=== PATIENT | male | born 1950 | race Caucasian/White ===

== ENCOUNTER → 2017-07-09 | Outpatient (CLI) | payer OTHER | LOC: FIMAGING 12:56 | PROVIDERS: ATTEND Orthopaedic Surgery | DX: M17.12 Unilateral primary osteoarthritis, left knee (principal) ==

== ENCOUNTER → 2017-07-20 | Outpatient (CLI) | payer OTHER | LOC: FIMAGING 13:16 | PROVIDERS: ATTEND Family Medicine | DX: Z13.83 Encounter for screening for respiratory disorder NEC (principal); R91.1 Solitary pulmonary nodule; E78.00 Pure hypercholesterolemia, unspecified; I25.10 Atherosclerotic heart disease of native coronary artery without angina pectoris; Z87.891 Personal history of nicotine dependence ==

== ENCOUNTER 2017-10-14 08:06 | Observation (INO) | payer OTHER, MEDICARE ==
[~2017-10-14 08:06] MED LIST: ACETAMINOPHEN 325 MG TAB PO ONE; DEXAMETHASONE 4 MG/ML VIAL IVP ONE; FAMOTIDINE 20 MG TAB PO ONE; ROPIVACAINE 0.2% 80 MG, EPINEPHrine 0.2 MG, KETOROLAC TROMETHAMINE 30 MG in SYRINGE 0 ML IU ONE; TRANEXAMIC ACID 3,000 MG in NS 50 ML IRR ONE; TRANEXAMIC ACID 3,000 MG/50 ML BAG IRR ONE; VANCOMYCIN 1 GM VIAL ONE; ceFAZolin 2 GM/SWFI 2 GM/20 ML SYR IVP ONE
[2017-10-14] MEDS ORDERED: FAMOTIDINE 20 MG TAB PO ONE (08:30)
[2017-10-14] MEDS ORDERED: ceFAZolin 2 GM/SWFI 2 GM/20 ML SYR IVP ONE (08:30)
[2017-10-14] MEDS ORDERED: DEXAMETHASONE 4 MG/ML VIAL IVP ONE (08:30)
[2017-10-14] MEDS ORDERED: ACETAMINOPHEN 325 MG TAB PO ONE (08:30)
[2017-10-14] MEDS ORDERED: LIDOCAINE 1% 2 ML INJ ID PRN (08:31)
[2017-10-14] MEDS ORDERED: LR 1,000 ML IV ONE (08:31)
[2017-10-14] MEDS ORDERED: MIDAZOLAM 2 MG/2 ML VIAL ONE (09:54)
[2017-10-14] MEDS ORDERED: PROPOFOL/EMULSION 500 MG/50 ML BOTTLE IV ONE (09:54)
[2017-10-14] MEDS ORDERED: LIDOCAINE 2% 5 ML SDV ONE (10:24)
[2017-10-14] MEDS ORDERED: ROPIVACAINE HCL 150 MG/30 ML INJ ONE (10:24)
[2017-10-14] MEDS ORDERED: LR 500 ML IV PRN (10:31)
[2017-10-14] MEDS ORDERED: fentaNYL 100 MCG/2 ML INJ IVP PRN (10:31)
[2017-10-14] MEDS ORDERED: OXYCODONE/APAP 5/325 TAB PO PRN (10:31)
[2017-10-14] MEDS ORDERED: ACETAMINOPHEN 500 MG TAB PO PRN (10:31)
[2017-10-14] MEDS ORDERED: METOCLOPRAMIDE 10 MG/2 ML VIAL IVP PRN ×2 (10:31→11:21)
[2017-10-14] MEDS ORDERED: DEXAMETHASONE 4 MG/ML VIAL IVP PRN (10:31)
[2017-10-14] MEDS ORDERED: ALBUTEROL 3 ML DEYVIAL IH PRN (10:31)
[2017-10-14] MEDS ORDERED: NALOXONE HCL 0.4 MG/ML INJ IVP PRN (10:31)
[2017-10-14] MEDS ORDERED: MEPERIDINE 25 MG/ML SYR IVP PRN (10:31)
[2017-10-14] MEDS ORDERED: HYDROCODONE/APAP 5/325 TAB PO PRN (10:31)
[2017-10-14] MEDS ORDERED: ONDANSETRON 4 MG/2 ML VIAL IVP PRN ×2 (10:31→11:21)
--- NOTE | 2017-10-14 10:31 | PDANEPAE ---
ANE Past Medical History - Cardiovascular History Hx Hypertension: Yes Hx Arrhythmias: No Hx Chest Pain: No Hx Coronary Artery / Peripheral Vascular Disease: No Hx CHF / Valvular Disease: No Hx Palpitations: No - Pulmonary History Hx COPD: No Hx Asthma/Reactive Airway Disease: No Hx Recent Upper Respiratory Infection: No Hx Oxygen in Use at Home: No Hx Sleep Apnea: Yes Sleep Apnea Screening Result - Last Documented: Positive Pulmonary History Comment: cpap with humidifier - Neurologic History Hx Cerebrovascular Accident: No Hx Seizures: No Hx Dementia: No - Endocrine History Hx Diabetes: No - Renal History Hx Renal Disorders: No - Liver History Hx Hepatic Disorders: No - Neurological & Psychiatric Hx Hx Neurological and Psychiatric Disorders: No - Cancer History Hx Cancer: No - Congenital Disorder History Hx Congenital Disorders: No - GI History Hx Gastrointestinal Disorders: Yes Gastrointestinal History Comment: reflux - Other Health History Other Health History: none - Chronic Pain History Chronic Pain: No - Surgical History Prior Surgeries: wrist,meniscus tear repaired 2017 ANE Review of Systems Review of Systems: - Exercise capacity METS (RN): 4 METS ANE Patient History - Allergies Allergies/Adverse Reactions: Penicillins Allergy (Unknown, Verified 10/14/17 08:40) rxn when pt was a baby - Home Medications Home Medications: Allopurinol [Allopurinol 300 MG (RX)] 300 mg PO HS 09/28/17 [Last Taken 10/07/17 ] Aspirin [Aspirin 81mg (*)] 81 mg PO DAILY 09/28/17 [Last Taken 10/07/17] Atorvastatin Calcium [Lipitor 40 mg (*)] 40 mg PO HS 09/28/17 [Last Taken 20:00] Fluticasone Nasal [Flonase Nasal [place] (RX)] 1 sprays NASAL DAILY 09/28/17 [ Last Taken 10/13/17] Glucosamine/Chondroitin [Glucosamine/Chondroitin (*)] 1 each PO BID 09/28/17 [ Last Taken 09/30/17] Herbals/Supplements -Info Only 1 ea PO DAILY 09/28/17 [Last Taken 10/07/17] Levothyroxine [Synthroid 88 mcg (*)] 88 mcg PO DAILY06 09/28/17 [Last Taken 08:00] Lisinopril [Zestril 20 mg (*)] 20 mg PO DAILY 09/28/17 [Last Taken 10/13/17 08: 00] Naproxen Sodium [Aleve 220 MG (*)] 440 mg PO BID 09/28/17 [Last Taken 10/07/17] Clifton-3 Fatty Acids [Fish Oil 1000 mg (*)] 1,000 mg PO DAILY 09/28/17 [Last Taken 09/30/17] Ranitidine HCl [Zantac] 300 mg PO DAILY 09/28/17 [Last Taken 10/13/17 08:00] - NPO status NPO Since - Liquids (Date): 10/13/17 NPO Since - Liquids (Time): 20:30 NPO Since - Solids (Date): 10/13/17 NPO Since - Solids (Time): 19:00 - Smoking Hx Smoking Status: Former smoker - Family Anes Hx Family Hx Anesthesia Complications: none ANE Labs/Vital Signs - Vital Signs Blood Pressure: 137/80 Heart Rate: 51 Respiratory Rate: 16 O2 Sat (%): 91 Height: 182.88 cm Weight: 104.326 kg ANE Physical Exam - Airway Neck exam: FROM, increased neck circumference, short neck Mallampati Score: Class 3 Mouth exam: normal dental/mouth exam - Pulmonary Pulmonary: no respiratory distress, no rales or rhonchi, clear to auscultation - Cardiovascular Cardiovascular: regular rate and rhythym, no murmur, rub, or gallop - ASA Status ASA Status: III ANE Anesthesia Plan Anesthesia Plan: spinal Regional Anesthesia: single shot NB, adductor canal FNB
--- NOTE | 2017-10-14 11:16 | PDHPUP ---
History & Physical Update H&P update statement: This history and physical update is based on an assessment of the patient which was completed after admission or registration (within 24 hours), but prior to the surgery/procedure. H&P update: H&P reviewed & patient examined, no change in patient's condition since H&P completed
[2017-10-14] MEDS ORDERED: diphenhydrAMINE 25 MG CAP PO PRN (11:21)
[2017-10-14] MEDS ORDERED: POLYETHYLENE GLYCOL 3350 17 GM PKT PO PRN (11:21)
[2017-10-14] MEDS ORDERED: LACTULOSE 20 GM/30 ML UDCUP PO PRN (11:21)
[2017-10-14] MEDS ORDERED: TEMAZEPAM 15 MG CAP PO PRN (11:21)
[2017-10-14] MEDS ORDERED: CYCLOBENZAPRINE 10 MG TAB PO PRN (11:21)
[2017-10-14] MEDS ORDERED: oxyCODONE IR 5 MG TAB PO PRN (11:21)
[2017-10-14] MEDS ORDERED: BISACODYL 10 MG SUPP PR PRN (11:21)
[2017-10-14] MEDS ORDERED: PROMETHAZINE HCL 25 MG/ML INJ IVP PRN (11:21)
[2017-10-14] MEDS ORDERED: ONDANSETRON DISINTEGRATING 4 MG TAB PO PRN (11:21)
[2017-10-14] MEDS ORDERED: DIPHENOXYLATE/ATROPINE LOMOTIL 1 TAB PO PRN (11:21)
[2017-10-14] MEDS ORDERED: PROMETHAZINE HCL 25 MG SUPPR PR PRN (11:21)
[2017-10-14] MEDS ORDERED: MAGNESIUM HYDROXIDE 30 ML UDCUP PO PRN (11:21)
--- NOTE | 2017-10-14 11:24 | POSTOPPROG ---
Post Op Note Date of Operation: 10/14/17 Surgeon: Agustin Cevallos Jar Capper: dania cevallos Anesthesiologist: dr. alfredo Anesthesia: Spinal, Other (Specify) (adductor canal block) Pre-op Diagnosis: left knee OA Post-op Diagnosis: saem Indication: left knee pain due to OA that failed conservative measures Procedure: L med MPL robot assisted Findings: severe knee OA Inf/Abcess present in the surg proc area at time of surgery?: No EBL: 50-100
[2017-10-14] MEDS ORDERED: LR 1,000 ML IV SCH (11:30)
--- NOTE | 2017-10-14 11:56 | POSTANESTH ---
Post Anesthetic Evaluation Cardiovascular Status: Normal, Stable Respiratory Status: Normal, Stable Level of Consciousness/Mental Status: Can Participate in Eval Pain Control: Adequate, Prn Tx Ordered Nausea/Vomiting Control: Adequate, Prn Tx Ordered Complications Possibly Related to Anesthesia: None Noted
[2017-10-14] MEDS ORDERED: ceFAZolin 2 GM/DEXTROSE 100 ML IV SCH (14:00)
[2017-10-14] MEDS: ACETAMINOPHEN 325 MG TAB PO SCH ×3 (16:25→23:29)
[2017-10-14] MEDS: ceFAZolin 2 GM/SWFI 2 GM/20 ML SYR IVP SCH (17:52)
[2017-10-14] MEDS: FAMOTIDINE 20 MG TAB PO SCH (20:10)
[2017-10-14] MEDS: SENNOSIDES/DOCUSATE SODIUM TAB PO SCH (20:10)
[2017-10-14] MEDS: ASPIRIN 81 MG CHEWABLE TAB PO SCH (20:10)
[2017-10-14] MEDS ORDERED: ATORVASTATIN CALCIUM 40 MG TAB PO SCH (21:00)
[2017-10-15] MEDS: ceFAZolin 2 GM/SWFI 2 GM/20 ML SYR IVP SCH (02:07)
[2017-10-15] MEDS: ACETAMINOPHEN 325 MG TAB PO SCH (05:03)
[2017-10-15] MEDS ORDERED: LEVOTHYROXINE 88 MCG TAB PO SCH (06:00)
--- NOTE | 2017-10-15 06:11 | GOP ---
[f rep st] OPERATIVE REPORT DATE OF OPERATION: 10/14/2017 SURGEON: Rajan Duran MD [employer] OPERATOR: Letty Duran PA-C ANESTHESIA: Spinal. PREOPERATIVE DIAGNOSIS: Left knee osteoarthritis. POSTOPERATIVE DIAGNOSIS: Left knee osteoarthritis. PROCEDURE PERFORMED: Partial knee replacement left medial compartment with computer navigation robotic assist. FINDINGS: severe medial DJD ESTIMATED BLOOD LOSS: 30 cc. INDICATIONS: This is a 67-year-old male with progressive pain of the left knee unresponsive to conservative care. Risks and benefits of surgical intervention were explained in detail. DESCRIPTION OF PROCEDURE: The patient was brought to the operating room and placed on the table in supine position. Spinal anesthesia was induced without difficulty. A pneumatic tourniquet was applied about the left proximal thigh and the leg was prepped and draped in sterile fashion. Attention was turned first to the distal aspect of the left femur. At 3 cm proximal to the lateral rise of the femur, 2 percutaneous half pins were placed for fixation of the femoral array. In a similar fashion, 2 pins were placed anterolateral on the tibia for fixation of the tibial array. External land marking and registration of the hip center were performed without difficulty. After exsanguination by elevation, the tourniquet was inflated to 250 mmHg. Incision was made from the tibial tuberosity to the superior pole of the patella. Dissection was carried out through the subcutaneous tissue to the deep fascia using Bovie electrocautery for hemostasis. Medial parapatellar arthrotomy was carried out to the superior pole of the patella. The medial collateral ligament was elevated and the infrapatellar fat pad was resected. Internal femoral and tibial registration were carried out without difficulty and the femoral and tibial checkpoints were placed and verified for accuracy. Attention was turned to the femur. The foot print for the size 5 femoral component was cut with the 6 mm bur using the [employer] robotic system and verified for accuracy against the CT based plan. The hole was cut for the femoral post. In a similar fashion, the 6 mm bur was used to cut the foot print for the size 6 tibial component using the [employer] system and verified for accuracy against the CT based plan. Attention was turned to the posterior aspect of the knee and remnants of the medial meniscus were excised. The posterior capsule was injected with ropivacaine, epinephrine and Toradol. Trial reduction was carried out and there was excellent range of motion, alignment and stability using the size 5 femoral component and the size 6 tibial component. All trials were then removed. The joint was thoroughly irrigated and carefully dried. One package of cement and 1 gram of vancomycin were mixed in the vacuum mixer and placed on the fixation surfaces of all components. The components were implanted and all excess cement was thoroughly removed. Implant placement was verified against the CT view plan and found to be excellent. The tourniquet was deflated and all bleeders were coagulated. The wound was thoroughly irrigated and closed using interrupted sutures of 2-0 Vicryl for the joint capsule. The subcu was closed with 3-0 Vicryl and the skin with 4-0 Monocryl. Dermabond and Steri-Strips were applied, followed by a compressive dressing. The patient was then moved from the operating room to the recovery room in good condition, having tolerated the procedure well. CASE CLASSIFICATION: Clean. /[id number]/MODL MTDD
[2017-10-15 08:14] VITALS: BP 121/74; PULSE 49; RESP 18; TEMP 97.9; O2SAT 92
--- NOTE | 2017-10-15 08:26 | GDS ---
[f rep st] DISCHARGE SUMMARY ADMISSION DIAGNOSIS: Left knee osteoarthritis. DISCHARGE DIAGNOSIS: Left knee osteoarthritis. PROCEDURE: Left partial knee arthroplasty, medial compartment, robot assisted. VT PROPHYLAXIS: Recommend aspirin 81 mg twice daily for 4 weeks. BRIEF DESCRIPTION OF HOSPITAL STAY: Patient was admitted for an elective joint arthroplasty. The pa sunny tolerated the procedure well and has passed physical therapy. The patient was given appropriat e antibiotic prophylaxis and venous thromboembolism prophylaxis. The patient's pain was well control led on oral pain medication, patient was holding down food, and had urinated. Decision was made to d ischarge the patient. The patient was given post-operative prescriptions pre-operatively. PLAN: Please follow up as scheduled, November 05, at 8:45 a.m. /[id number]/MODL
--- NOTE | 2017-10-15 08:54 | SOAPPROG ---
SOAP Progress Note Assessment/Plan: Assessment: Patient is doing well POD 1 s/p L med MPL Pain management: pain is well controlled on oral pain meds. VTE ppx: recommend aspirin 81 mg BID for 4 weeks, cont ALFONSO and SCDs D/c planning: d/c to home today pending release from PT Plan: 10/15/17 08:53 Subjective: Evaristo is resting comfortably, denies SOB, chest pain and N/V. Objective: Vital Signs Temp Pulse Resp BP Pulse Ox 36.6 C 49 L 18 121/74 H 92 10/15/17 08:00 10/15/17 08:00 10/15/17 08:00 10/15/17 08:00 10/15/17 08:00 Laboratory Results 10/15/17 04:35 10/14/17 10/15/17 10/16/17 05:59 05:59 05:59 Intake Total 3104 Output Total 1000 Balance 2104 LLE: incision dressing is clean and dry, NVI, +pf/df ICD10 Worksheet Patient Problems: Problems Problem Status Onset Primary localized osteoarthritis of left knee Acute
[2017-10-15] MEDS ORDERED: FLUTICASONE NASAL 120 SPRAYS/16 GM MDI EACHNARE SCH (09:00)
[2017-10-15] MEDS ORDERED: LISINOPRIL 20 MG TAB PO SCH (09:00)
[2017-10-15] MEDS: FAMOTIDINE 20 MG TAB PO SCH (09:38)
[2017-10-15] MEDS: SENNOSIDES/DOCUSATE SODIUM TAB PO SCH (09:38)
[2017-10-15] MEDS: ASPIRIN 81 MG CHEWABLE TAB PO SCH (09:39)
--- NOTE | 2017-10-15 12:19 | ASDISCHSUM ---
Discharge Information Plan Status:Home with No Needs Medically Cleared to Leave: Discharge Date:10/15/2017 11:33 AM CM D/C Disposition:Home, Routine, Self-Care ADT D/C Disposition:Home, Routine, Self-Care Projected Discharge Date:10/15/2017 11:33 AM Transportation at D/C: Discharge Delay Reason: Follow-Up Date:10/15/2017 11:33 AM Discharge Slot: Final Diagnosis: Placement Information Patient Contact Information Contact Name:MANUEL Relationship: Address:[address] City:[place] Alternate Phone: State/Zip Code:[place] [address] Email: Financial Information Financial Class:MC Primary Plan Desc:MEDICARE INPATIENT Primary Plan Number:[id number] Secondary Plan Desc:[employer]/M[employer] SUPPLEMENT Secondary Plan Number:[id number] Assessment Information Intervention Information
== END 2017-10-15 11:33 | disposition home or self-care (01) ==
LOC: F3N 08:06 → INTOOBSV 08:06 → F3N 15:13
PROVIDERS: ADMIT Orthopaedic Surgery; ATTEND Orthopaedic Surgery
PROC: 8E0Y0CZ Robotic Assisted Procedure of Lower Extremity, Open Approach (ICD-10-PCS; principal; 2017-10-14 10:15)
PROC: 0SRD0J9 Replacement of Left Knee Joint with Synthetic Substitute, Cemented, Open Approach (ICD-10-PCS; principal; 2017-10-14 10:15)
DX: M17.12 Unilateral primary osteoarthritis, left knee (principal); G47.33 Obstructive sleep apnea (adult) (pediatric); K21.9 Gastro-esophageal reflux disease without esophagitis; Z87.891 Personal history of nicotine dependence
CPT/HCPCS: 27446; 73560; 97110; 97116; 97161; 97165; 97535; C1713; C1776; G8978; G8979; G8980; G8987; G8988; G8989; J0171; J0690; J1100; J1200; J1885; J2250; J2704; J2795; J3370